=== PATIENT | female | born 1945 | race Caucasian/White ===

== ENCOUNTER 2019-10-19 16:05 | Emergency (ER) | payer MEDICARE, OTHER ==
--- NOTE | 2019-10-19 17:31 | ER Document Report ---
ED Medical Screen (RME) - General Chief Complaint: Urinary Problem Stated Complaint: ABNORMAL LABWORK Time Seen by Provider: 10/19/19 17:26 Mode of Arrival: Ambulatory Information source: Patient Notes: Patient presents stating that she has a urine infection that will only respond to IV antibiotics. Patient had outpatient lab work performed with a positive urine culture. Patient states her provider advised her to come here for additional treatment. Patient denies any back pain fever, nausea or vomiting. Patient does complain of pressure with voiding. I have greeted and performed a rapid initial assessment of this patient. A comprehensive ED assessment and evaluation of the patient, analysis of test results and completion of the medical decision making process will be conducted by additional ED providers. TRAVEL OUTSIDE OF THE [place] IN LAST 30 DAYS: No - Related Data Allergies/Adverse Reactions: codeine Allergy (Verified 10/19/19 17:19) morphine Allergy (Verified 10/19/19 17:19) Penicillins Allergy (Verified 10/19/19 17:18) Physical Exam - Vital signs Vitals: Temp Pulse Resp BP Pulse Ox 97.8 F 81 16 122/61 97 10/19/19 17:01 10/19/19 17:01 10/19/19 17:01 10/19/19 17:01 10/19/19 17:01 - General General appearance: Appears well, Alert In distress: None - Back Back: No: CVA tenderness Course - Vital Signs Vital signs: Temp Pulse Resp BP Pulse Ox 97.8 F 81 16 122/61 97 10/19/19 17:01 10/19/19 17:01 10/19/19 17:01 10/19/19 17:01 10/19/19 17:01
[2019-10-19 18:20] LABS: ABSOLUTE BASOPHILS # (AUTO) 0.1 10^3/uL (0.0-0.2); ABSOLUTE EOSINOPHILS # (AUTO) 0.1 10^3/uL (0.0-0.6); ABSOLUTE MONOCYTES (AUTO) 0.4 10^3/uL (0.1-1.4); ABSOLUTE NEUT (AUTO) 3.2 10^3/uL (1.7-8.2); BASOPHILS % (AUTO) 1.1 % (0-2); EOSINOPHILS % (AUTO) 1.6 % (0-6); HEMATOCRIT 38.5 % (36.0-47.0); HEMOGLOBIN 13.9 g/dL (12.0-15.5); MEAN CORPUSCULAR HGB CONC 36.1 g/dL (32.0-36.0); MEAN CORPUSCULAR VOLUME 105 fl (80-97); MONOCYTES % (AUTO) 6.5 % (3-13); PLATELET COUNT 243 10^3/uL (150-450); RED BLOOD COUNT 3.67 10^6/uL (3.72-5.28); RED CELL DISTRIBUTION WIDTH 14.3 % (11.5-14.0); SEGMENTED NEUTROPHILS % (AUTO) 55.8 % (42-78); TOTAL CELLS COUNTED % (AUTO) 100 %; WHITE BLOOD COUNT 5.7 10^3/uL (4.0-10.5)
[2019-10-19 18:22] LABS: APPEARANCE,URINE CLEAR; BILIRUBIN,URINE NEGATIVE (NEGATIVE); COLOR,URINE YELLOW; GLUCOSE, URINE NEGATIVE (NEGATIVE); KETONES,URINE NEGATIVE (NEGATIVE); LEUKOCYTE ESTERASE,URINE TRACE (NEGATIVE); NITRITE,URINE NEGATIVE (NEGATIVE); PROTEIN,URINE NEGATIVE (NEGATIVE); UROBILINOGEN,URINE NEGATIVE mg/dL (<2.0)
[2019-10-19 18:39] LABS: ALBUMIN 4.4 g/dL (3.5-5.0); ALKALINE PHOSPHATASE 82 U/L (38-126); ANION GAP 8 (5-19); ASPARTATE AMINO TRANSFERASE 30 U/L (14-36); BILIRUBIN,DIRECT 0.1 mg/dL (0.0-0.4); BILIRUBIN,TOTAL 0.5 mg/dL (0.2-1.3); BLOOD UREA NITROGEN 18 mg/dL (7-20); CALCIUM 10.3 mg/dL (8.4-10.2); CARBON DIOXIDE 28 mmol/L (22-30); CHLORIDE 98 mmol/L (98-107); GLUCOSE 102 mg/dL (75-110); POTASSIUM 3.8 mmol/L (3.6-5.0); TOTAL PROTEIN 7.1 g/dL (6.3-8.2)
[2019-10-19 21:44] VITALS: BP 138/69
[2019-10-19] MEDS ORDERED: CEPHALEXIN 500 MG CAPSULE PO ONE (22:23)
--- NOTE | 2019-10-19 22:23 | ER Document Report ---
ED GI/ - General Chief Complaint: Urinary Problem Stated Complaint: ABNORMAL LABWORK Time Seen by Provider: 10/19/19 17:26 Mode of Arrival: Ambulatory Notes: Patient is a 74-year-old female that comes to the emergency department for chief complaint of painful urination, urinary frequency, urinary hesitancy. Symptoms actually been going on for several days now but are worse today. She was seen by urgent care, had a urine culture performed, she was called with results of the culture and had an antibiotic called into [facility] but she states that they forgot to sign the prescription and she was unable to fill this. She states she has been unable to get back up with them so she came in here after she called and spoke with a nurse. She states she was told that the culture showed that she had a resistant strain that was only sensitive to IV antibiotics. She denies fevers, abdominal pain, vomiting, flank pain. Past medical history of GERD, neuropathy, BECCA, heart murmur, hysterectomy, urethral sling. TRAVEL OUTSIDE OF THE [place] IN LAST 30 DAYS: No - Related Data Allergies/Adverse Reactions: codeine Allergy (Verified 10/19/19 21:54) morphine Allergy (Verified 10/19/19 21:54) oxycodone Allergy (Verified 10/19/19 21:54) Penicillins Allergy (Verified 10/19/19 21:54) Past Medical History - General Information source: Patient - Social History Smoking Status: Never Smoker Frequency of alcohol use: None Drug Abuse: None Lives with: Family Family History: Reviewed & Not Pertinent Patient has suicidal ideation: No Patient has homicidal ideation: No - Past Medical History Cardiac Medical History: Reports: Hx Hypertension GI Medical History: Reports: Hx Gastroesophageal Reflux Disease Past Surgical History: Reports: Hx Hysterectomy, Hx Orthopedic Surgery - right total knee, Hx Tonsillectomy Review of Systems - Review of Systems Constitutional: No symptoms reported EENT: No symptoms reported Cardiovascular: No symptoms reported Respiratory: No symptoms reported Gastrointestinal: No symptoms reported Genitourinary: See HPI Female Genitourinary: No symptoms reported Musculoskeletal: No symptoms reported Skin: No symptoms reported Hematologic/Lymphatic: No symptoms reported Neurological/Psychological: No symptoms reported Physical Exam - Vital signs Vitals: Temp Pulse Resp BP Pulse Ox 97.8 F 81 16 122/61 97 10/19/19 17:01 10/19/19 17:01 10/19/19 17:01 10/19/19 17:01 10/19/19 17:01 - Notes Notes: GENERAL: Alert, interacts well. No acute distress. HEAD: Normocephalic, atraumatic. EYES: Pupils equal, round, and reactive to light. Extraocular movements intact. ENT: Oral mucosa moist, tongue midline. Oropharynx unremarkable. Airway patent. NECK: Full range of motion. Supple. Trachea midline. LUNGS: Clear to auscultation bilaterally, no wheezes, rales, or rhonchi. No respiratory distress. HEART: Regular rate and rhythm. No murmur ABDOMEN: Soft, non-tender. Non-distended. EXTREMITIES: Moves all 4 extremities spontaneously. No edema, normal radial and dorsalis pedis pulses bilaterally. No cyanosis. BACK: No CVA tenderness. No cervical, thoracic, lumbar midline tenderness. No saddle anesthesia, normal distal neurovascular exam. Moves all extremities in full range of motion. NEUROLOGICAL: Alert and oriented x3. Normal speech. Cranial nerves II through XII grossly intact. PSYCH: Normal affect, normal mood. SKIN: Warm, dry, normal turgor. No rashes or lesions noted. Course - Re-evaluation Re-evalutation: Patient is very well-appearing. She has a soft benign abdomen without complaints of abdominal pain, she does have urinary symptoms. CBC, chemistry unremarkable, urine does indicate a urinary tract infection, vital signs unremarkable including no fever. I did obtain patient's copy of her urine culture. This shows Streptococcus. They only tested it against penicillin, cefotaxime, ceftriaxone, and vancomycin but it was pansensitive with these. This is only per the report I was given. Based on it being Streptococcus and being sensitive to everything, patient can be placed on cephalosporin, culture can be obtained again from here, she can take medications orally. I did discuss the culture with and plan with Dr. Abarca. Discussed with patient, she is expresses appreciation and agreement with this plan. Stable at time of discharge. - Vital Signs Vital signs: Temp Pulse Resp BP Pulse Ox 98.2 F 72 18 138/69 H 99 10/19/19 21:39 10/19/19 21:39 10/19/19 21:39 10/19/19 21:39 10/19/19 21:39 - Laboratory Result Diagrams: 10/19/19 18:01 10/19/19 18:01 Laboratory results interpreted by me: 10/19/19 10/19/19 10/19/19 16:30 18:01 18:01 RBC 3.67 L MCV 105 H MCH 38.0 H MCHC 36.1 H RDW 14.3 H Sodium 134.3 L Calcium 10.3 H Ur Leukocyte Esterase TRACE H Discharge - Discharge Clinical Impression: Dysuria Urinary tract infection Qualifiers: Urinary tract infection type: site unspecified Hematuria presence: without hematuria Qualified Code(s): N39.0 - Urinary tract infection, site not specified Condition: Stable Disposition: HOME, SELF-CARE Additional Instructions: We do have a urine culture pending on your new urine sample, however your previous sample indicated Streptococcus, we are treating this with cephalexin, take as prescribed to completion. Symptoms should simply resolve. Follow-up with primary care for additional evaluation and management. Return if you worsen including severe abdominal pain, vomiting, fever, or any other concerning symptoms. Prescriptions: Cephalexin Monohydrate [Keflex 500 mg Capsule] 500 mg PO BID 7 Days #14 capsule
== END 2019-10-19 22:43 | disposition home or self-care (01) ==
LOC: ER 16:05
DX: N39.0 Urinary tract infection, site not specified (principal); B95.5 Unspecified streptococcus as the cause of diseases classified elsewhere; I10 Essential (primary) hypertension; Z88.6 Allergy status to analgesic agent; Z88.5 Allergy status to narcotic agent; Z88.0 Allergy status to penicillin
CPT/HCPCS: 99283; 36415; 87040; 87086; 85025; 80053; 81001; A9270